=== PATIENT | female | born 1995 | race Two or more races ===

== ENCOUNTER 2016-09-08 20:16 | Outpatient (CLI) | payer MEDICAID, OTHER ==
[2016-09-08 21:00] VITALS: BMI 31.5
== END 2016-09-08 21:03 | disposition home or self-care (01) ==
LOC: FBCOUT 20:16 → FBC 20:16 → FBCOUT 21:03
PROVIDERS: ATTEND Family Medicine
DX: O36.8190 Decreased fetal movements, unspecified trimester, not applicable or unspecified (principal); Z3A.00 Weeks of gestation of pregnancy not specified
CPT/HCPCS: 59025; 81002; G0463

== ENCOUNTER 2016-09-14 10:08 | Inpatient (IN) | payer MEDICAID, OTHER ==
[2016-09-14 10:38] VITALS: BMI 32.0
[2016-09-14] MEDS ORDERED: OXYTOCIN IN LR 500 ML IV ONE ×2 (13:19→14:28)
[2016-09-14] MEDS ORDERED: LACTATED RINGERS 1,000 ML IV PRN ×2 (13:19→23:44)
--- NOTE | 2016-09-14 13:43 | PCMAN ---
OB Admission Note - History : 1 Abortions (S&E): 0 Livin EDC:: 09/14/16 Gestational Age (weeks): 40 Days (#/7): 0 Admit Cervical Dilation:: 4 Admit Cervical Effacement (%):: 80 Admit Station:: -3 Admit Presentaton:: vertex Membrane Status: Intact Labor Onset (Date): 09/14/16 Labor Onset (Time): 13:00 Contractions: Yes Contraction Frequency:: q3-4 min Heart Rate:: 140 Status:: Cat I Summary of Course:: 21 yo G1 at 40w0d c/o UCs, worse at 8AM PNC: Started PNC early. Dated by LMP c/w 10w u/s and 21 wk u/s. Asxmatic UTI, resolved w tx. Anemia tx'd w Fe resolved. At end of preg developed suburethral mass, extruding greenish fluid from urethra. Neg for GC/chlam. Asxmatic. D/w OB , deferred current w/u due to late stage of preg, but if persists after delivery , refer to Urogyn. EUGENIO 09/14/16 LMP 12/09/15. Plans BF. Peds: Jany. BCM: Nexplanon. Tdap: 06/29/16 U/s: female GBS neg OBHx: n/a PMH: non contrib PSH: none SocHx: no tob/etoh/drugs IZ: TdaP 06/29/16 Flu 04/21/16 - Labs Blood Type: O (+) positive (ab neg) Hct/Hgb:: 14 Rubella Status: Immune GBS Status: Negative Abnormal Labs: None Other Labs:: HIV NR HBsAg NR Syphilis neg GC neg Chlam neg - Review of Systems No TOVAR, change in vision, RUQ pain or nondependent edema - Physical Exam General: Afebrile, Mild Distress Psych/Mental Status: Mood/Affect Appropriate, Judgment/Insight Intact Neurological: Grossly Intact, Alert, Normal Gait, Normal Speech HEENT: Atraumatic, Mucous membr. moist/pink Lungs: Clear to Auscultation Bilaterally Cardiovascular: Regular Rate and Rhythm Abdomen: Other (gravid) Extremities: Full ROM, No Edema DTR: Bicep (L): 2+ (Brisk, Normal), Bicep (R): 2+ (Brisk, Normal) Skin: Normal Color, Warm, Dry - Problems (1) Active labor at term Status: Acute Code: [id number]/Plan: 21 yo at 40w0d here in early active labor Admit Expt mgmt Plans IV pain meds for pain mgmt
[2016-09-14] MEDS ORDERED: IV START KIT ONE (14:27)
[2016-09-14] MEDS ORDERED: SODIUM CHLORIDE 0.9% FLUSH 10 ML ONE (14:27)
[2016-09-14] MEDS ORDERED: MINERAL OIL 25 ML BOT ONE (14:27)
[2016-09-14] MEDS ORDERED: LIDOCAINE Viscous 2% 15 ML UDCUP ONE (14:27)
[2016-09-14] MEDS ORDERED: LIDOCAINE 1% (PRES FREE) 30 ML VIAL ONE (14:27)
[2016-09-14] MEDS ORDERED: OXYTOCIN 10 UNITS/ML VIAL ONE (14:27)
[2016-09-14] MEDS ORDERED: PUMP TUBING ONE (14:28)
[2016-09-14 15:09] LABS: HEMOGLOBIN 13.3 gm/l (12.0-16.0); MEAN CELL VOLUME 86.7 fl (81.0-99.0); MEAN CORPUSCULAR HEMOGLOBIN 29.6 pg (27.0-31.0); MEAN CORPUSCULAR HGB CONC 34.1 g/dl (33.0-37.0); RED CELL DISTRIBUTION WIDTH 16.2 % (11.5-14.5)
--- NOTE | 2016-09-14 23:17 | PCMDEL ---
Delivery Note - Labor 1st stage (hr/min):: 7hr 49min 2nd stage (hr/min):: 0hr 11min 3rd stage (hr/min):: 0hr 19min Total (hr/min):: 8hr 19min Pushed (hr/min):: 0hr 11min - Delivery Delivery (Date): 09/14/16 Delivery (Time): 21:02 Gender: Female Position: OA Umbilical Cord: 3 Vessel Delayed Cord Clamping:: < 1 min (30 secs) 1 Minute Total: 9 5 Minute Total: 9 Placenta:: complete and intact EBL:: 400ml Perineum:: partial 2nd deg, good hemostasis, no repair Suture:: n/a Anesthesia/Meds:: none Length ROM:: 3hr 20 min Comments:: vigorous female over partial 2nd deg perineal lac. Infant to mom's chest. Delay cord clamp x 30 secs, 3v cord. Active 3rd stage w IV pitocin. Placenta del complete and intact. FF w massage. 2nd deg perineal lac w good hemostasis, no repair. Infant and mom bonding skin to skin .
[2016-09-14] MEDS ORDERED: MAGNESIUM HYDROXIDE 30 ML UDCUP PO PRN (23:44)
[2016-09-14] MEDS ORDERED: LANOLIN 50 APPLIC/7G TUBE TP PRN (23:44)
[2016-09-14] MEDS ORDERED: CALCIUM CARBONATE 500 MG TAB.CHEW PO PRN (23:44)
[2016-09-14] MEDS ORDERED: DOCUSATE SODIUM 100 MG CAPSULE PO PRN (23:44)
[2016-09-14] MEDS ORDERED: SENNOSIDES 8.6 MG TABLET PO PRN (23:44)
[2016-09-14] MEDS ORDERED: HYDROCODONE/ACETAMINOPHEN 5/325MG TABLET PO PRN (23:44)
[2016-09-14] MEDS ORDERED: BENZOCAINE/MENTHOL 60 APPLIC/BOT TP PRN (23:44)
[2016-09-15] MEDS: IBUPROFEN 800 MG TABLET PO PRN ×2 (01:16→21:11)
[2016-09-15 07:09] LABS: HEMATOCRIT 31.3 % (37.0-47.0); HEMOGLOBIN 10.4 gm/l (12.0-16.0)
--- NOTE | 2016-09-15 13:12 | PDOC44 ---
- Subjective Day: 1 Patient doing well. Pain controlled with meds. Ambulating without dizziness. Tolerating PO. BF well. Lochia minimal. Reports Pain Tolerable, Reports , Reports Lochia Light, Reports Tolerating Regular Diet, Denies Nausea, Denies Vomiting - Objective Temp Pulse Resp BP Pulse Ox 98.0 F 75 16 100/55 09/15/16 07:51 09/15/16 07:51 09/15/16 07:51 09/15/16 07:51 Lab Results 09/15/16 09/14/16 06:10 14:50 WBC 15.7 H RBC 4.50 Hgb 10.4 L D 13.3 Hct 31.3 L 39.0 Plt Count 262 09/14/16 14:50 RDW 16.2 H Current Medications Generic Name Dose Route Start Last Admin Trade Name Freq PRN Reason Stop Dose Admin Acetaminophen/Hydrocodone Bitart 1 - 2 tab 09/14/16 23:44 [place] 5/325 PO Q4H PRN Pain (Moderate) Benzocaine/Menthol 1 applic 09/14/16 23:44 09/15/16 01:16 Dermoplast TP 1 bot PRN PRN Administration Patient Comfort Calcium Carbonate/Glycine 500 - 1,000 mg 09/14/16 23:44 Tums PO BID PRN Indigestion Docusate Sodium 100 mg 09/14/16 23:44 Colace PO DAILY PRN Comfort Emollient Ointment 1 applic 09/14/16 23:44 Bwl-C-Bbulkc TP PRN PRN sore nipples Lactated Ringer's 1,000 mls @ 100 mls/hr 09/14/16 23:44 Lactated Ringers IV .Q10H PRN Titrate per clinical situation Ibuprofen 800 mg 09/14/16 23:44 09/15/16 01:16 Motrin PO 800 mg Q6H PRN Administration Pain (Mild) Magnesium Hydroxide 30 ml 09/14/16 23:44 Milk Of Magnesia PO BEDTIME PRN Constipation Senna 17.2 mg 09/14/16 23:44 Senokot PO BEDTIME PRN Comfort Sodium Chloride 10 ml 09/14/16 23:44 Normal Saline 10ml Flush IV PRN PRN IV Flush Sodium Chloride 10 ml 09/15/16 17:00 Normal Saline 10ml Flush IV Q8HR IRENE - Physical Exam General: Afebrile, No Acute Distress Psych/Mental Status: Mood/Affect Appropriate, Bonding Well Neurological: Alert, Normal Speech Lungs: Clear to Auscultation Bilaterally, Normal Air Movement Cardiovascular: Regular Rate and Rhythm, Normal S1, Normal S2 Breast: Nipples Intact Fundus: Firm, Midline Extremities: Full ROM, No Edema, No Tenderness Skin: Normal Color, Warm, Dry, Intact, No Rash - Problems:Assessment/Plan (1) (normal spontaneous vaginal delivery) Status: AcuteAssessment/Plan: Doing well Routine PP care BF support Anticipate d/c tomorrow Disposition: Stable, Anticipate DC Home Tomorrow
[2016-09-16] MEDS: IBUPROFEN 800 MG TABLET PO PRN (05:17)
[2016-09-16 07:44] VITALS: BP 116/67
[2016-09-16] MEDS ORDERED: IV START KIT ONE (07:49)
--- NOTE | 2016-09-16 10:01 | PDOC39B ---
Hospital Course: ADMIT DATE: 09/14/16 DISCHARGE DATE: 09/16/16 ADMISSION DIAGNOSES: labor PROCEDURES: HISTORY OF PRESENT ILLNESS: 21 year old G1 T0 L0 at 40 weeks 0 days presenting with active labor HOSPITAL COURSE: The patient is doing well. By day of discharge the patient is ambulating, eating, voiding, and passing flatus without difficulty. Pain is controlled and lochia is appropriate. She is [] - Physical Exam Vital Signs: Temp Pulse Resp BP Pulse Ox 98.0 F 71 16 116/67 09/16/16 07:35 09/16/16 07:35 09/16/16 07:35 09/16/16 07:35 General: Afebrile Neurological: Alert HEENT: Atraumatic Lungs: Clear to Auscultation Bilaterally Cardiovascular: Regular Rate and Rhythm Breast: Soft Fundus: At Umbilicus Lochia: Light Rectal Exam: Deferred Extremities: Full ROM, Other (nt, no edema) - Discharge Diagnosis (1) (normal spontaneous vaginal delivery) Status: AcuteAssessment/Plan: Doing well Routine PP care BF support home - Discharge Plan Condition: Good Disposition: Home Prescriptions: Ibuprofen [Motrin] 800 mg PO Q8H PRN #30 tablet PRN Reason: Pain Follow-Up: Nurys Liu MD [Primary Care Provider] - In 6 weeks
== END 2016-09-16 12:45 | disposition home or self-care (01) | DRG 775 ==
LOC: FBC 10:08 → FBCOUT 10:08 → FBC 13:08
PROVIDERS: ADMIT Family Medicine; ATTEND Family Medicine
PROC: 10E0XZZ Delivery of Products of Conception, External Approach (ICD-10-PCS; principal; 2016-09-14)
DX: O70.1 Second degree perineal laceration during delivery (principal); O48.0 Post-term pregnancy; Z3A.40 40 weeks gestation of pregnancy; Z37.0 Single live birth

== ENCOUNTER 2016-09-19 14:30 | Outpatient (CLI) | payer OTHER | END 2016-09-19 14:31 | disposition home or self-care (01) | LOC: BABIESSH 14:30 | PROVIDERS: ATTEND Family Medicine | DX: Z39.1 Encounter for care and examination of lactating mother (principal) ==

== ENCOUNTER 2016-09-23 15:26 | Outpatient (CLI) | payer OTHER | END 2016-09-23 15:27 | disposition home or self-care (01) | LOC: BABIESSH 15:26 | PROVIDERS: ATTEND Family Medicine | DX: Z39.1 Encounter for care and examination of lactating mother (principal) ==